=== PATIENT | female | born 1945 | race Caucasian/White ===

== ENCOUNTER → 2021-01-03 | Outpatient (CLI) | payer MEDICARE ==
[~2021-01-03] MED LIST: ATORVASTATIN CA40 MG PO; CLARITIN10 M2 PO; COREG 12.5MG12.5 MG PO; GLUCOTROL 10 MG10 MG PO; HYDROCHLOROTHIA25 MG PO; HYDROXYCHLOROQ200 MG PO; IRON325 M1 PO; LEVOTHYROXINE25 MCG PO; LISINOPRIL10 MG PO; LO-DOSE ASPIRIN81 MG PO; METFORMIN HCL1000 MG PO; NORCO 5-325 TA1 EACH PO; TRAMADOL HCL50 MG PO; VITAMIN B-121000 MCG PO; VITAMIN D3 PO
== END ==
LOC: OPSV2 12:00
DX: Z01.818 Encounter for other preprocedural examination (principal); S32.039D Unspecified fracture of third lumbar vertebra, subsequent encounter for fracture with routine healing; S22.079D Unspecified fracture of T9-T10 vertebra, subsequent encounter for fracture with routine healing; S22.059D Unspecified fracture of T5-T6 vertebra, subsequent encounter for fracture with routine healing; X58.XXXD Exposure to other specified factors, subsequent encounter
CPT/HCPCS: 71046; 93005

== ENCOUNTER → 2021-01-11 | Day surgery (SDC) | payer MEDICARE, SELFPAY | END | disposition home or self-care (01) | LOC: OR 06:38 | PROVIDERS: Orthopaedic Surgery | PROC: 0QB03ZX Excision of Lumbar Vertebra, Percutaneous Approach, Diagnostic (ICD-10-PCS; principal; 2021-01-11 10:00) | PROC: 0QU03JZ Supplement Lumbar Vertebra with Synthetic Substitute, Percutaneous Approach (ICD-10-PCS; principal; 2021-01-11 10:00) | DX: M80.88XA Other osteoporosis with current pathological fracture, vertebra(e), initial encounter for fracture (principal); I10 Essential (primary) hypertension; I25.10 Atherosclerotic heart disease of native coronary artery without angina pectoris; E03.9 Hypothyroidism, unspecified; E78.5 Hyperlipidemia, unspecified; Z79.82 Long term (current) use of aspirin; Z79.899 Other long term (current) drug therapy; Z88.0 Allergy status to penicillin; Z88.1 Allergy status to other antibiotic agents; Z88.5 Allergy status to narcotic agent; Z95.5 Presence of coronary angioplasty implant and graft | CPT/HCPCS: 82962; C1713; J1100; J2001; J2405; J2704; J2710; J3010; J7120; Q9962 ==

== ENCOUNTER → 2021-03-21 | Outpatient (CLI) | payer MEDICARE, SELFPAY ==
[~2021-03-21] VITALS: Ht 157.5 cm; Wt 74.8 kg
== END ==
LOC: OPSV 12:00
DX: M81.0 Age-related osteoporosis without current pathological fracture (principal)
CPT/HCPCS: 96365; J3489

== ENCOUNTER → 2021-07-10 | Outpatient (CLI) | payer MEDICARE | LOC: EXRD 13:00 → ECHO 13:01 | DX: I34.0 Nonrheumatic mitral (valve) insufficiency (principal); R60.0 Localized edema | CPT/HCPCS: ECHO; 93306; 93925; 93970 ==

== ENCOUNTER → 2022-05-25 | Outpatient (CLI) | payer MEDICARE, OTHER ==
[~2022-05-25] VITALS: Ht 162.6 cm; Wt 76.7 kg
== END ==
LOC: OPSV 12:32
DX: E21.3 Hyperparathyroidism, unspecified (principal); M81.0 Age-related osteoporosis without current pathological fracture
CPT/HCPCS: 96365; J3489